=== PATIENT | male | born 1990 ===

== ENCOUNTER 2018-10-15 10:31 | Emergency (ER) | payer SELFPAY ==
[2018-10-15 10:48] VITALS: BP 138/74; PULSE 67; RESP 18; TEMP 98.2; O2SAT 98
--- NOTE | 2018-10-15 11:28 | C.PDOC ---
History Of Present Illness Pt c/o painful lump on his right axilla. Time Seen by Provider: 10/15/18 11:13 Chief Complaint (Nursing): Abnormal Skin Integrity History Per: Patient Onset/Duration Of Symptoms: Days (few) Current Symptoms Are (Timing): Still Present Quality Of Symptoms: Painful. denies: Draining Severity: Mild Additional History Per: Prior Records Past Medical History Reviewed: Historical Data, Nursing Documentation, Vital Signs Vital Signs: Last Vital Signs Temp 98.2 F 10/15/18 10:45 Pulse 67 10/15/18 10:45 Resp 18 10/15/18 10:45 BP 138/74 10/15/18 10:45 Pulse Ox 98 10/15/18 10:45 - Medical History PMH: No Chronic Diseases Family History: States: Unknown Family Hx - Social History Hx Alcohol Use: No Hx Substance Use: No - Immunization History Hx Tetanus Toxoid Vaccination: No Hx Influenza Vaccination: No Hx Pneumococcal Vaccination: No Review Of Systems Except As Marked, All Systems Reviewed And Found Negative. Constitutional: Negative for: Fever, Chills, Weakness ENT: Negative for: Throat Pain Cardiovascular: Negative for: Chest Pain Respiratory: Negative for: Cough, Shortness of Breath Musculoskeletal: Negative for: Neck Pain Neurological: Negative for: Weakness, Numbness Physical Exam - Physical Exam Appears: Non-toxic, No Acute Distress Skin: Warm, Dry, Other (Tender, indurated area on right axilla. No fluctuance.) Head: Atraumatic, Normacephalic Eye(s): bilateral: Normal Inspection, PERRL, EOMI Neck: Normal ROM, Supple Extremity: Normal ROM, No Deformity Pulses: Right Radial: Normal Neurological/Psych: Oriented x3, Normal Motor, Normal Sensation ED Course And Treatment O2 Sat by Pulse Oximetry: 98 Pulse Ox Interpretation: Normal Disposition Counseled Patient/Family Regarding: Diagnosis, Need For Followup, Rx Given - Disposition Referrals: [facility] [Outside] Disposition: HOME/ ROUTINE Disposition Time: 11:28 Condition: STABLE Additional Instructions: Follow up in the clinic. Return to the ER if you develop fever, worsening of symptoms or if you have any other concerns. Prescriptions: Clindamycin [Cleocin] 300 mg PO QID #40 cap Naproxen [Naprosyn] 1 tab PO BID PRN #20 tab PRN Reason: Pain Instructions: Boil (DC) Forms: [facility] (Nigerian) Print Language: FILIPINO - Clinical Impression Clinical Impression: Abscess of axilla, right
== END 2018-10-15 11:35 | disposition home or self-care (01) ==
LOC: C.ER 10:31
DX: L02.411 Cutaneous abscess of right axilla (principal)